=== PATIENT | male | born 1995 ===

== ENCOUNTER 2017-01-06 18:06 | Emergency (ER) | payer SELFPAY ==
[2017-01-06 18:39] LABS: Urine Bilirubin Negative (NEGATIVE); Urine Ketone Negative (NEGATIVE); Urine Nitrite Negative (NEGATIVE); Urine Protein Negative (NEGATIVE); Urine Urobilinogen Normal (NORMAL)
[2017-01-06 19:03] LABS: Urine Appearance Cloudy; Urine Bacteria 1+; Urine Blood 10 /ul (NEGATIVE); Urine Color Yellow; Urine RBC 0-5 /hpf (0-5); Urine WBC >50 /hpf (0-5)
--- NOTE | 2017-01-06 20:26 | ERNOTE ---
ER Male HPI Stated Complaint: URINARY PAIN ER Male: penile discharge, dysuria Time Seen by Provider: 01/06/17 20:10 Source: patient Exam Limitations: no limitations Allergies/Adverse Reactions: Allergies No Known Allergies Allergy (Unverified 01/06/17 18:19) Home Medications: HOME MEDICATIONS Ciprofloxacin HCl [Cipro] 500 mg PO BID #28 tab 01/06/17 [Last Taken Unknown] - History of Present Illness Narrative: Pt reports dysuria for approx 1 week worsening. Only has discomfort when urinating. Timing: Present: getting worse Quality: Present: moderate, burning Onset Location: Present: urethral Radiation: Present: none Activities at Onset: Present: none Prior Abdominal Problems: Present: none Sexual Ridott History: Present: less than 2 months ago Modifying Factors - (Worsens): Present: urinating - greater than one month Associated Symptoms: Absent: fever/chills, abdominal pain Review of Systems - Review of Systems Constitutional: Absent: fever, chills, fatigue EYE: Present: no symptoms reported ENT: Present: no symptoms reported Respiratory: Present: no symptoms reported Cardiology: Present: no symptoms reported Gastrointestinal/Abdominal: Absent: nausea, abdominal pain Genitourinary: Present: See HPI. Absent: hematuria Musculoskeletal: Present: no symptoms reported Skin: Absent: rash, lesions, lumps Neurological: Present: no symptoms reported Endocrine: Present: no symptoms reported Hematologic/Lymphatic: Present: no symptoms reported Psych: Present: no symptoms reported - Patient's Past Medical History Patient History - Medical: No pertinent hx Patient History - Cardiac/Respiratory: No pertinent hx Patient History - Cancer: No Hx of Cancer Patient History - Surgical Procedures: Other Patient History - Other: None - Social History Living Situations: home Psych History: No pertinent hx Smoking Status: Never smoker Do you dip or chew tobacco: Yes Physical Exam - Physical Exam General Appearance: Present: wd/wn, alert, no apparent distress Eye Exam: Normal inspection: bilateral Neck: Present: normal inspection, supple Respiratory: Present: no respiratory distress, no accessory muscle use Gastrointestinal/Abdominal: Present: normal bowel sounds, nontender, nondistended, soft Male Genitals Exam: Present: normal genitalia Back Exam: Present: normal inspection, normal range of motion, no CVA tenderness , no vertebral tenderness Extremity Exam: Present: normal inspection, normal range of motion, no edema Neurological Exam: Present: alert, oriented, normal mood/affect, no motor/ sensory deficits Skin Exam: Present: normal color, warm/dry Lymphatic Exam: Present: no adenopathy ED Progress - Results and Orders Patient's Lab Results:: I have reviewed the patient's lab results. Results and Orders: Laboratory Tests 01/06/17 18:20 Urine Color Yellow Urine Appearance Cloudy Urine pH 6.0 Ur Specific [place] 1.010 Urine Protein Negative Urine Glucose (UA) Negative Urine Ketones Negative Urine Blood 10 H Urine Nitrate Negative Urine Bilirubin Negative Urine Urobilinogen Normal Ur Leukocyte Esterase 500 H Urine RBC 0-5 Urine WBC >50 H Ur Epithelial Cells None seen Urine Bacteria 1+ H Urine Culture Comments Culture to follow Urine GC/Chlamydia DNA pending - Vital Signs Vital Signs: Vital Signs 01/06/17 01/06/17 18:16 19:50 Temperature 37.0 C 36.9 C Pulse Rate 72 Respiratory 16 18 Rate Blood Pressure 134/88 125/84 O2 Sat by Pulse 100 Oximetry - Progress/Reassessment Chief Complaint: Genitourinary Problem Departure Clinical Impression: Urinary tract infection Qualifiers: Urinary tract infection type: urethritis Qualified Code(s): N34.2 - Other urethritis - Departure Disposition: Home self-care Condition: Good Instructions: Urethritis, Adult Prescriptions: Ciprofloxacin HCl [Cipro] 500 mg PO BID #28 tab
[2017-01-06] MEDS ORDERED: AZITHROMYCIN 250 MG TABLET ONE (20:27)
[2017-01-06] MEDS: AZITHROMYCIN 250 MG TABLET PO ONE (20:32)
[2017-01-06 20:36] VITALS: BP 124/84
--- OUTSIDE RECORDS SUMMARY | 2017-01-06 21:08 | XMS REPORT | Continuity of Care Document ---
:1995 Demographics Phone Unavailable Preferred Language Unknown Marital Status Unknown Denominational Affiliation Unknown Race Unknown Ethnic Group Unknown Author Organization [facility] ([facility]) [place] [address] Phone [phone] Care Team Providers Name Role Phone Unavailable Primary Care Provider Unavailable Source Comments This disclosure is being made pursuant to the Care Everywhere program, applicable federal and state laws, and may not contain all informaitonavailable regarding this patient.[facility] ([facility]) Active Allergies and Adverse Reactions Not on File Current Medications Not on file Active Problems Not on file Social History Tobacco Use Types Packs/Day Years Used Date Never Assessed Plan of Care Health Maintenance Due Date Last Done Comments Hepatitis B Vaccine (1 of 3 - Primary Series) 1993 HPV Vaccine (1 of 3 - Male 3 Dose Series) 2004 Tdap Vaccine 2004 Lipid Disorder Screening 2011 MMR Vaccine 2011 Td Vaccine 2011 Varicella Vaccine (1 of 2 - Adult - No Evidence of 2011 Immunity) Influenza Vaccine: Seasonal (#1) 03/09/2016 Results from Last 3 Months Not on file
== END 2017-01-06 20:45 | disposition home or self-care (01) ==
LOC: ER 18:06
DX: N34.2 Other urethritis (principal)